=== PATIENT | male | born 2000 | race Caucasian/White ===

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

== ENCOUNTER 2024-09-03 16:27 | Outpatient (CLI) | payer BC, SELFPAY ==
[2024-09-03 16:13] LABS: Microscopic, Urine URINE MICROSCOPIC (MICROSCOPIC)
[2024-09-03 16:32] LABS: Basophils % 0.3 % (0.1-2.0); Eosinophils # 0.1 K/mm3 (0.0-0.4); Eosinophils % 1.2 % (0.1-12.0); Hematocrit 44.6 % (42.0-52.0); Hemoglobin 15.5 g/dL (14.1-18.0); Lymphocytes # 2.3 K/mm3 (0.7-4.5); Lymphocytes % 38.1 % (10-50); Mean Corpuscular HGB Conc 34.8 g/dL (31.8-35.4); Mean Corpuscular Hemoglobin 30.8 pg (27.0-31.2); Mean Corpuscular Volume 88.6 fl (80-94); Mean Platelet Volume 8.2 fl (7.4-10.4); Monocytes # 0.4 K/mm3 (0.1-1.0); Monocytes % 6.1 % (1.7-9.3); Neutrophils # 3.3 K/mm3 (1.8-7.8); Neutrophils % 54.3 % (37.0-80.0); Platelet Count 231 K/mm3 (142-424); Red Blood Count 5.03 M/mm3 (4.60-6.20); Red Cell Distribution Width 12.9 % (11.5-17.5); White Blood Count 6.1 K/mm3 (4.8-10.8)
[2024-09-03 17:05] LABS: Albumin Level 5.1 g/dl (3.5-5.0); Chloride 104 mmol/L (98-107); Potassium 4.8 mmoL/L (3.5-5.1)
[2024-09-03 17:07] LABS: Blood Urea Nitrogen 12 mg/dl (9-20); Estimated Glomerular Filt Rate 93 ml/min (>60); GFR (African American) 112 ML/MIN (>60)
[2024-09-03 17:08] LABS: Alanine Aminotransferase 48 U/L (12-78); Albumin/Globulin Ratio 1.8 (1.1-1.8); Alkaline Phosphatase 72 U/L (38-126); Aspartate Amino Transferase 36 U/L (17-59); Bilirubin,Total 0.5 mg/dl (0.2-1.3); Calcium 10.4 mg/dl (8.4-10.2); Carbon Dioxide 28 mmol/L (22.0-30.0); Cholesterol 182 mg/dl (140-200); Globulin 2.8 g/dL (1.3-3.2); Glucose 82 mg/dl (74-100); Iron 72 ug/dL (49-181); Total Protein,Serum 7.9 g/dl (6.3-8.2); Triglycerides 143 mg/dl (30-150); VLDL Cholesterol 29 mg/dL (0-40)
[2024-09-03 17:09] LABS: Chol/HDL Ratio 4.4 (1-3.5); HDL Cholesterol 41 mg/dl (40-60)
[2024-09-03 17:21] LABS: Anion Gap 12.8 mEq/L (5-15); Sodium 140 mmol/L (136-145)
[2024-09-03 17:22] LABS: Direct LDL Cholesterol 106.09 mg/dL (100-129)
[2024-09-03 17:26] LABS: Hemoglobin A1C 5.1 % (4.0-6.0); Total Iron Binding Capacity 332 ug/dL (261-462)
[2024-09-03 17:50] LABS: Ferritin 151 ng/ml (17.9-464)
[2024-09-03 18:05] LABS: Vitamin B12 533 pg/mL (239-931)
[2024-09-03 18:41] LABS: 25-OH Vitamin D, Total 40.7 ng/mL (30-100)
[2024-09-03 19:54] LABS: HIV (1&2) Antibody Rapid NONREACTIVE (NONREACTIVE)
[2024-09-04 01:21] LABS: Appearance,Urine CLEAR (Clear); Bilirubin,Urine Negative (Negative); Blood, Urine Negative (Negative); Color,Urine YELLOW (Yellow); Glucose,Urine (UA) Negative (Negative); Ketones,Urine Negative (Negative); Leukocyte Esterase,Urine Negative (Negative); Nitrate,Urine Negative (Negative); Protein,Urine Negative (Negative); Urobilinogen,Urine 0.2 EU/dl (0.2)
[2024-09-04 01:34] LABS: Bacteria,Urine 1+ /lpf
[2024-09-05 05:27] LABS: HCV Ab Non Reactive (Non Reactive)
== END 2024-09-03 23:59 | disposition home or self-care (01) ==
LOC: LAB.DROPOF 16:29
PROVIDERS: PCP Nurse Practitioner Family; Visit Provider Nurse Practitioner Family
DX: R53.83 Other fatigue (principal); E03.9 Hypothyroidism, unspecified; Z13.1 Encounter for screening for diabetes mellitus; Z11.4 Encounter for screening for human immunodeficiency virus [HIV]; Z11.59 Encounter for screening for other viral diseases; Z13.220 Encounter for screening for lipoid disorders
CPT/HCPCS: 80050; 80053; 80061; 81001; 82306; 82607; 82728; 83036; 83540; 83550; 84439; 84443; 85025; 86803; 87086; 87389

== ENCOUNTER 2024-10-01 14:56 | Outpatient (CLI) | payer BC, SELFPAY ==
[2024-10-01 14:27] LABS: Anion Gap 17.1 mEq/L (5-15); Blood Urea Nitrogen 12 mg/dl (9-20); Calcium 9.6 mg/dl (8.4-10.2); Carbon Dioxide 25 mmol/L (22.0-30.0); Chloride 104 mmol/L (98-107); Estimated Glomerular Filt Rate 105 ml/min (>60); GFR (African American) 127 ML/MIN (>60); Glucose 82 mg/dl (74-100); Potassium 4.1 mmoL/L (3.5-5.1); Sodium 142 mmol/L (136-145)
[2024-10-01 14:39] LABS: Intact Parathyroid Hormone 33.6 pg/mL (7.5-53.5)
[2024-10-01 14:41] LABS: Free T4 (Free Thyroxine) 1.13 ng/dl (0.78-2.19)
[2024-10-02 12:29] LABS: Thyroid Peroxidase Antibodies 465 IU/mL (0-34)
[2024-10-02 16:23] LABS: Calcium, Ionized 4.8 mg/dL (4.5-5.6)
[2024-10-02 18:10] LABS: Thyroglobulin Level 20.3 IU/mL (0.0-0.9)
== END 2024-10-01 23:59 | disposition home or self-care (01) ==
LOC: LAB.DROPOF 15:25
PROVIDERS: PCP Nurse Practitioner Family; Visit Provider Nurse Practitioner Family
DX: E03.9 Hypothyroidism, unspecified (principal); R53.83 Other fatigue; E06.3 Autoimmune thyroiditis
CPT/HCPCS: 80048; 82330; 83970; 84439; 84443; 86376; 86800

== ENCOUNTER 2025-06-06 08:44 | Outpatient (CLI) | payer BC, SELFPAY ==
[2025-06-06 14:03] LABS: Free T4 (Free Thyroxine) 0.57 ng/dl (0.78-2.19)
[2025-06-06 14:56] LABS: Thyroid Stimulating Hormone 134.00 uIU/mL (0.465-4.68)
--- OUTSIDE RECORDS SUMMARY | 2025-06-10 07:58 | XMS_ITS | Clinical Summary ---
Author Organization Healthcare Address [address] [place] [address] Care Team Providers Care Costume Design Teacher Name Role Phone Chriss Carbajal MD Primary Care Provider [phone] Tiffany Bhagat RN Unavailable Unavailable Allergies Active Allergy Reactions Criticality Noted Date Comments Platelets Unknown - Patient st ates they do not know rxn details Low 04/30/2024 Medications levothyroxine (Synthroid, Levoxyl) 137 MCG tablet Take 137 mcg by mouth 1 (one) time each day. as directed 09/24/2021 Active levothyroxine (Synthroid, Levoxyl) 100 MCG tablet Take 1 tablet (100 mcg) by mouth 1 (one) time each day. 10/01/2024 Active Active Problems No known active problems Immunizations Immunization Administration Dates Next Due DTaP, Unspecified 03/04/2006 IPV 03/04/2006 Influenza, injectable, quadrivalent, preservativ e free 08/19/2017 MMR 04/04/2006,03/04/2006 Family History Medical History Relation Name Comments Hypertension Father Other cancer Father Stroke Father Cardiac disorder Maternal Grandmother Diabetes Maternal Grandmother Stroke Other 1 Diabetes Other 2 Hypertension Other 3 Obesity Other 4 Hyperlipidemia Other 5 Relation Name Status Comments Father Maternal Grandmother Other 1 Other 2 Other 3 Other 4 Other 5 Social History Tobacco Use Types Packs/Day Years Used Date Smoking Tobacco: Never Smokeless Tobacco: Never Tobacco Cessation:Counseling Given: Not Answered Alcohol Use Standard Drinks/Week Comments No 0 (1 standard drink = 0.6 oz pur e alcohol) Sex and Gender Information Value Date Recorded Sex Assigned at Not on file Legal Sex Male 6:27 PM EDT Gender Identity Not on file Sexual Orientation Not on file Last Filed Vital Signs Vital Sign Reading Time Taken Comments Blood Pressure 138/81 10/25/2024 2:33 PM EST Pulse 74 10/25/2024 2:33 PM EST Temperature 37.1 C (98.7 F) 10/25/2024 2:33 PM EST Respiratory Rate 14 10/25/2024 2:33 PM EST Oxygen Saturation 99% 10/25/2024 2:33 PM EST Inhaled Oxygen Concentration - - Weight 93.6 kg (206 lb 5.6 oz) 10/25/2024 2:33 P M EST Height 181.6 cm (5' 11.5 ) 10/25/2024 2:33 PM ES T Body Mass Index 28.38 10/25/2024 2:33 PM EST Plan of Treatment Health Maintenance Due Date Last Done Comments [facility]-Depression Screening 2001 [facility]-HIV Screening 2001 [facility]-Hepatitis C Screening 2001 [facility]-Infant/Child/Adol SDOH Screenings 2001 [facility]-IPV Vaccines (2 of 3 - 4 -dose series) 04/01/2006 03/04/2006 [id number] Vaccine (#1) 2006 [facility]-Obesity Intervention 2007 HPV Vaccines (1 - Risk male 3-dose series) 2012 [facility]-Varicella Vaccines (1 of 2 - 13+ 2-dose series) 2014 [facility]- SDOH Screenings 2019 [facility]-Adult SDOH Screenings 2019 [facility]-DTaP,Tdap,and Td Vaccine s (2 - Tdap) 2020 03/04/2006 [facility]-Hepatitis B Vaccines (1 of 3 - 19+ 3-dose series) 2020 [facility]-Pneumococcal Vaccine: Pediatrics (0 to 5 Years) and At-Risk Patients (6 to 49 Years) (1 of 2 - PCV) 2020 [facility]-Zoster Vaccines (1 of 2) 2020 [facility]-Influenza Vaccine (#1) 2025 08/19/2017 [facility]-HIB Vaccines Aged Out No longer e ligible based on patient's age to complete this topic [facility]-Hepatitis A Vaccines Aged Out No longer eligible based on patient's age to complete this topic [facility]-Rotavirus Vaccines Aged Out No lo nger eligible based on patient's age to complete this topic Insurance [employer] Member Subscriber Plan / Payer (Ef fective 2023-Present) Name:EMILI BILLEB A Relation to Subscriber:Child Name:ROSALINDA BILL Date of :1977 (Home) Address: [address] [place] [address] [facility] [place] [address] Payer ID:[id number] (NAIC) Type:Not on file Address: [phone] [place] Care Teams Costume Design Teacher Relationship Specialty Start Date End Date Chriss Carbajal MD [address] [place] [id number] PCP - General 04/03/21 Tiffany Bhagat, RN [facility] Nurse Navigator Pediatric Hematology and Oncology 10/24/24
== END 2025-06-06 23:59 | disposition home or self-care (01) ==
LOC: LAB.DROPOF 06-10 07:57
PROVIDERS: PCP Nurse Practitioner Family; Visit Provider Nurse Practitioner Family
DX: E03.9 Hypothyroidism, unspecified (principal); G47.33 Obstructive sleep apnea (adult) (pediatric)
CPT/HCPCS: 84439; 84443

== ENCOUNTER 2025-07-04 14:31 | Outpatient (CLI) | payer BC, SELFPAY ==
[2025-07-04 15:16] LABS: Free T4 (Free Thyroxine) 1.54 ng/dl (0.78-2.19)
[2025-07-04 15:31] LABS: Thyroid Stimulating Hormone 3.44 uIU/mL (0.465-4.68)
--- OUTSIDE RECORDS SUMMARY | 2025-07-08 14:35 | XMS_ITS | Clinical Summary ---
Author Organization Healthcare Address [address] [place] [address] Care Team Providers Care Director [employer] News Name Role Phone Chriss Carbajal MD Primary Care Provider [phone] Tiffany Bhagat RN Unavailable Unavailable Allergies Active [...] [facility]-HIV Screening 2001 [facility]-Hepatitis C Screening 2001 [facility]-/Child/Adol SDOH Screenings 2001 [facility]-IPV Vaccines (2 of 3 - 4 -dose series) 04/01/2006 03/04/2006 [id number] Vaccine (#1) 2006 [facility]-Obesity Intervention 2007 HPV [...] 2023-Present) Name:EMILI BILLEB A Relation to Subscriber:Child Name:ROSLAINDA BILL Date of :1977 (Home) Address: [address] [place] [address] [place] [address] Payer ID:[id number] (NAIC) Type:Not on file Address: [id number] [place] Care Teams Director Radio News Relationship Specialty Start Date End Date Chriss Carbajal MD [address] [place] [id number] PCP - General 04/03/21 Tiffany Bhagat, RN [facility] Nurse Navigator Pediatric Hematology and Oncology 10/24/24
== END 2025-07-04 23:59 ==
LOC: LAB.DROPOF 07-08 14:31
PROVIDERS: PCP Nurse Practitioner Family; Visit Provider Nurse Practitioner Family
DX: E03.9 Hypothyroidism, unspecified (principal)
CPT/HCPCS: 84439; 84443